=== PATIENT | female | born 1945 | race Caucasian/White ===

== ENCOUNTER 2024-05-19 20:09 | Inpatient (IN) | payer MEDICARE ==
[~2024-05-19] VITALS: Ht 170.2 cm; Wt 78.2 kg
[2024-05-19 20:45] LABS: BASOPHILS ABSOLUTE AUTO 0.04 K/mm3 (0.00-0.23); BASOPHILS PERCENT AUTO 0 % (0-2); EOSINOPHILS PERCENT AUTO 0 % (0-6); Hematocrit 45.1 % (33.0-51.0); Hemoglobin 14.6 g/dL (11.5-16.0); IMMATURE GRAN ABSOLUTE AUTO 0.22 K/mm3 (0.00-0.10); IMMATURE GRAN PERCENT AUTO 1 % (0-1); LYMPHOCYTES ABSOLUTE AUTO 0.39 K/mm3 (0.84-5.20); LYMPHOCYTES PERCENT AUTO 2 % (21-46); MONOCYTES ABSOLUTE AUTO 0.41 K/mm3 (0.16-1.47); MONOCYTES PERCENT AUTO 3 % (4-13); Mean Corpuscular HGB Conc 32.4 g/dL (31.5-36.5); Mean Corpuscular Volume 93 fL (80-100); Mean Platelet Volume 9.7 fL (9.1-12.4); NEUTROPHILS ABSOLUTE AUTO 15.61 K/mm3 (1.96-9.15); NEUTROPHILS PERCENT AUTO 94 % (41-73); Platelet Count 240 K/mm3 (150-400); RDW Coefficient Variation 14.4 % (11.7-14.2); RDW Standard Deviation 49.1 fL (35.1-46.3); Red Blood Cell Count 4.87 M/mm3 (3.80-5.20); White Blood Cell Count 16.67 K/mm3 (4.00-11.30)
[2024-05-19 20:54] LABS: Prothrombin Time Results 10.7 Sec (9.7-11.5)
[2024-05-19 20:59] LABS: Albumin, Blood 3.8 g/dL (3.4-5.0); Albumin/Globulin Ratio 0.9 (0.8-1.8); Bilirubin, Total 0.8 mg/dL (0.1-1.0); Bun/Creatinine Ratio 21.5 (12.0-20.0); Calcium, Blood 8.9 mg/dL (8.5-10.1); Creatinine, Blood 0.79 mg/dL (0.40-1.00); Globulin, Blood 4.4 g/dL (2.2-4.0); Potassium, Blood 3.9 mmol/L (3.5-5.5); Total Protein, Blood 8.2 g/dL (6.4-8.2)
[2024-05-19] MEDS ORDERED: Ketorolac Tromethamine 30mg Vial IV ONE (21:20)
[2024-05-19] MEDS ORDERED: NS 1,000 ML IV SCH ×2 (21:20→22:15)
[2024-05-19] MEDS ORDERED: CefTRIAXone Sodium 1,000 MG in NS 50 ML IV ONE (21:20)
[2024-05-19] MEDS ORDERED: Clindamycin 900mg in D5W 50ML 50 ML IV ONE (21:20)
[2024-05-19] MEDS ORDERED: TRAZ50 PO (22:06)
[2024-05-19] MEDS ORDERED: Hydroxychloroq200 MG PO (22:06)
[2024-05-19] MEDS ORDERED: FUROSEMIDE20 MG PO (22:06)
[2024-05-19] MEDS ORDERED: NEURONTIN300 MG PO (22:07)
[2024-05-19] MEDS ORDERED: Acetaminophen 325 MG TABLET PO PRN (22:15)
[2024-05-19 23:08] VITALS: BP 107/56
--- NOTE | 2024-05-20 01:33 | NUR ---
ADMISSION-LATE ENTRY FOR 05/19/24 @ 0253: PATIENT IS RECIEVED FROM ER VIA STRETCHER. ABLE TO AMBULATE TO THE BED FROM THE [facility] WITH A STEADY GAIT. PATIENT WAS ORIENTED TO THE ROOM AND CALL RUIZ. NO SMOKING POLICY IS REVIEWED. MD IS IN ROOM AND IS MADE AWARE OF A TEMP. TYLENOL WAS GIVEN FOR A HEADACHE AND TEMP. SEE VS.
[2024-05-20 06:15] LABS: Source, Urine Clean Catch
[2024-05-20 06:21] LABS: Appearance, Urine Hazy (Clear); Bilirubin, Urine Neg (Neg); Blood, Urine 1+ (Neg); Color, Urine Yellow (P-Yellow); Glucose Qualitative, Urine Neg (Neg); Ketones, Urine 2+ (Neg); Leukocyte Esterase, Urine 3+ (Neg); Nitrite, Urine Pos (Neg); Protein, Urine 2+ (Neg); Specific Gravity, Urine 1.025 (1.003-1.022); Urobilinogen, Urine NORM (Normal)
[2024-05-20 06:36] LABS: BASOPHILS ABSOLUTE AUTO 0.04 K/mm3 (0.00-0.23); BASOPHILS PERCENT AUTO 0 % (0-2); EOSINOPHILS ABSOLUTE AUTO 0.01 K/mm3 (0.00-0.68); EOSINOPHILS PERCENT AUTO 0 % (0-6); Hematocrit 38.9 % (33.0-51.0); Hemoglobin 12.5 g/dL (11.5-16.0); IMMATURE GRAN ABSOLUTE AUTO 0.09 K/mm3 (0.00-0.10); IMMATURE GRAN PERCENT AUTO 1 % (0-1); LYMPHOCYTES PERCENT AUTO 6 % (21-46); MONOCYTES ABSOLUTE AUTO 0.48 K/mm3 (0.16-1.47); MONOCYTES PERCENT AUTO 4 % (4-13); Mean Corpuscular HGB 29.9 pg (26.0-34.0); Mean Corpuscular HGB Conc 32.1 g/dL (31.5-36.5); Mean Corpuscular Volume 93 fL (80-100); Mean Platelet Volume 9.7 fL (9.1-12.4); NEUTROPHILS PERCENT AUTO 89 % (41-73); Platelet Count 193 K/mm3 (150-400); RDW Coefficient Variation 14.6 % (11.7-14.2); RDW Standard Deviation 50.2 fL (35.1-46.3); Red Blood Cell Count 4.18 M/mm3 (3.80-5.20); White Blood Cell Count 12.82 K/mm3 (4.00-11.30)
[2024-05-20 06:51] LABS: Bacteria Many /hpf; Squamous Epithelial Cells Many /hpf (Few)
--- NOTE | 2024-05-20 06:57 | NUR ---
SHIFT SUMMARY: PATIENT SLEPT WELL THROUGH THE SHIFT. TEMP. ON ADMIT TO THE FLOOR WAS 101, MD WAS AT BEDSIDE AND AWARE. RECHECK THIS AM WAS 98.7. URINE SAMPLE WAS SENT TO LAB. PATIENT REPORTED DISCOMFORT WHEN SHE STOOD TO AMB. TO THE BATHROOM, FELT BETTER WHEN BACK IN BED.
[2024-05-20 07:07] LABS: Bun/Creatinine Ratio 30.6 (12.0-20.0); Calcium, Blood 7.7 mg/dL (8.5-10.1); Creatinine, Blood 0.69 mg/dL (0.40-1.00); Potassium, Blood 3.7 mmol/L (3.5-5.5)
[2024-05-20 07:36] VITALS: BP 111/59
[2024-05-20] MEDS ORDERED: Enoxaparin 40 MG/0.4 ML SYR SC SCH (09:00)
[2024-05-20] MEDS ORDERED: Banana Flakes/Tos 1 EA Powder Pack PO STA (10:13)
--- NOTE | 2024-05-20 14:43 | NUR ---
SHIFT SUMMARY PT RESTING QUIETLY AT START OF SHIFT, BUT WOKE EASILY FOR SHIFT REPORT. IVF'S INFUSING. RLE ELEVATED, BUT STILL VERY RED AND SWOLLEN. ADMITTED FOR CELLULITIS. PT UP TO BTHRM INDEPENDENTLY FOR BM. PT LATER C/O DIARRHEA D/T ABX. DR FERNÁNDEZ NOTIFIED; NEW ORDERS PLACED. FAMILY IN TO VISIT [facility]. PT PULLING OUT LAC IV. NEW IV PLACED TO ; PT TOLERATED WELL. SR ON TELE. MEDICATED FOR C/O CRUM; PT REPORTED TYLENOL EFFECTIVE. DENIES FURTHER NEEDS AT THIS TIME. CALL LT IN REACH.
[2024-05-20] MEDS ORDERED: CefTRIAXone Sodium 1,000 MG in NS 100 ML IV SCH (15:00)
[2024-05-20 15:33] VITALS: BP 96/80
[2024-05-20 18:51] LABS: Adenovirus F 40/41 Not Detected (NOT DETECT); Astrovirus Not Detected (NOT DETECT); Campylobacter Sp Not Detected (NOT DETECT); Cryptosporidium Not Detected (NOT DETECT); Cyclospora Cayetanensis Not Detected (NOT DETECT); E. Coli O157 Not Detected (NOT DETECT); Entamoeba Histolytica Not Detected (NOT DETECT); Enteroaggregative E. coli-EAEC Not Detected (NOT DETECT); Enteropathogenic E. coli-EPEC Not Detected (NOT DETECT); Enterotoxigenic E. coli-ETEC Not Detected (NOT DETECT); Giardia Lamblia Not Detected (NOT DETECT); Norovirus GI/GII Not Detected (NOT DETECT); Plesiomonas Shigelloides Not Detected (NOT DETECT); Rotavirus A Not Detected (NOT DETECT); Salmonella Sp Not Detected (NOT DETECT); Sapovirus Not Detected (NOT DETECT); Shiga Toxin-prod E. coli-STEC Not Detected (NOT DETECT); Shigella/Enteroin E. coli-EIEC Not Detected (NOT DETECT); Vibrio Cholerae Not Detected (NOT DETECT); Vibrio Sp Not Detected (NOT DETECT); Yersinia Enterocolitica Not Detected (NOT DETECT)
[2024-05-20 20:23] VITALS: BP 106/56
[2024-05-20] MEDS ORDERED: Lactobacil 2-S.Thermo-Bifido 1 1 Cap PO SCH (21:00)
[2024-05-21 03:06] VITALS: BP 124/64
--- NOTE | 2024-05-21 05:25 | NUR ---
SHIFT SUMMARY PATIENT WAS NEG FOR C DIFF. AND HAD NO FURTHER DIARRHEA THIS SHIFT. DID NO REQUEST AND PRN PAIN MEDS.
[2024-05-21 06:58] VITALS: BP 109/63
[2024-05-21 08:05] LABS: Hematocrit 34.4 % (33.0-51.0); Hemoglobin 10.9 g/dL (11.5-16.0); Mean Corpuscular HGB 29.9 pg (26.0-34.0); Mean Corpuscular HGB Conc 31.7 g/dL (31.5-36.5); Mean Corpuscular Volume 95 fL (80-100); Mean Platelet Volume 9.8 fL (9.1-12.4); Platelet Count 164 K/mm3 (150-400); RDW Coefficient Variation 14.6 % (11.7-14.2); RDW Standard Deviation 50.2 fL (35.1-46.3); Red Blood Cell Count 3.64 M/mm3 (3.80-5.20); White Blood Cell Count 10.55 K/mm3 (4.00-11.30)
[2024-05-21 08:20] LABS: Bun/Creatinine Ratio 26.7 (12.0-20.0); Calcium, Blood 7.6 mg/dL (8.5-10.1); Creatinine, Blood 0.49 mg/dL (0.40-1.00); Potassium, Blood 3.4 mmol/L (3.5-5.5)
[2024-05-21] MEDS ORDERED: Loperamide HCl 2 MG Cap PO PRN (09:00)
[2024-05-21] MEDS ORDERED: LOPE2C PO (11:10)
[2024-05-21] MEDS ORDERED: VISBIOME 112.51 EACH PO (11:11)
[2024-05-21] MEDS ORDERED: CEPH500 PO (11:11)
--- NOTE | 2024-05-21 12:27 | NUR ---
DISCHARGE PT DISCHARGED AT 1125. PT IV REMOVED & INTACT. TELE REMOVED & SENT BACK TO PCU. PT EDUCATED ON NEW MEDS AND FOLLOW UP APPOINTMENTS NEEDED. STATES SHE HAS NO FURTHER QUESTIONS AT THIS TIME. EDUCATED TO KEEP LET ELEVATED & TO SEEK TREATMENT IF CELLULITIS GETS WORSE. NO OTHER ACUTE CHANGES IN ASSESSMENT AT THIS TIME. WHEELED OUT BY AIDE. & PICKED UP BY DAUGHTER
== END 2024-05-21 11:25 | disposition home or self-care (01) | DRG 872 ==
LOC: ER 20:09 → MEDS 20:10 → PCU 20:10 → MEDS 22:59
PROVIDERS: Family Medicine; Internal Medicine; Student in an Organized Health Care Education/Training Program; ADMIT Internal Medicine
DX: A41.9 Sepsis, unspecified organism (principal); L03.115 Cellulitis of right lower limb; E87.1 Hypo-osmolality and hyponatremia; K52.1 Toxic gastroenteritis and colitis; Z96.651 Presence of right artificial knee joint; T36.95XA Adverse effect of unspecified systemic antibiotic, initial encounter; M19.90 Unspecified osteoarthritis, unspecified site; Z87.891 Personal history of nicotine dependence; Z79.899 Other long term (current) drug therapy
CPT/HCPCS: 36415; 71045; 80048; 80053; 81001; 83605; 85025; 85027; 85610; 87040; 87086; 87507; 93971; 96365; 96368; 96372; 96375; 99285-25; A9270; G0378; J0696; J1650; J1885; J7030